=== PATIENT | female | born 1995 | race Caucasian/White ===

== ENCOUNTER 2016-08-27 20:23 | Emergency (ER) | payer OTHER ==
[~2016-08-27] VITALS: Ht 152.4 cm; Wt 49.9 kg
--- NOTE | 2016-08-27 23:45 | RAD ---
PROCEDURE CT head without contrast. CT cervical spine without contrast. HISTORY Head injury, head and neck pain TECHNIQUE Exposure: One or more of the following individualized dose reduction techniques were utilized for this exam: 1. Automated exposure control. 2. Adjustment of the mA and/or kV according to patient size. 3. Use of iterative reconstruction technique. [address] imaging skullbase to vertex. Helical noncontrast CT imaging of the cervical spine. COMPARISON No prior FINDINGS CT Head: No intracranial hemorrhage, mass, hydrocephalus, extra-axial fluid collections or infarction. Orbits, mastoids, paranasal sinuses and bones are unremarkable. CT cervical spine: Craniocervical junction intact. Cervical vertebral body height and alignment intact. No fracture of the cervical spine. Lung apices and paraspinal tissues are unremarkable. IMPRESSION CT Head: No acute intracranial CT abnormality. CT cervical spine: No acute osseous injury of the cervical spine. Electronically signed by: Yovani Duvall MD (Aug 27, 2016 23:43:17)
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
[2016-08-28 00:15] VITALS: BP 103/54
== END 2016-08-28 00:19 | disposition home or self-care (01) ==
LOC: ER 20:23
DX: S06.0X0A Concussion without loss of consciousness, initial encounter (principal); S16.1XXA Strain of muscle, fascia and tendon at neck level, initial encounter; X58.XXXA Exposure to other specified factors, initial encounter; Y93.89 Activity, other specified; Y92.69 Other specified industrial and construction area as the place of occurrence of the external cause; Y99.8 Other external cause status
CPT/HCPCS: 70450; 72125; 81025; 99284-25